=== PATIENT | male | born 1965 | race Caucasian/White ===

== ENCOUNTER 2024-10-05 22:18 | Emergency (ER) | payer BC, SELFPAY ==
[2024-10-05 22:18] VITALS: BMI 26.4
[2024-10-05 22:26] VITALS: BP 130/89; PULSE 80; RESP 17; TEMP 36.9; O2SAT 97
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
[2024-10-05] MEDS: HYDROcodone/APAP 10/325 TAB PO (22:39)
[2024-10-05] MEDS: cephALEXin 250 MG CAPSULE 500 MG PO (22:39)
[2024-10-05] MEDS: DIPHTH,PERTUSS(ACELL),TET VAC 0.5 ML SYR IMi (22:41)
== END 2024-10-05 22:55 | disposition home or self-care (01) ==
LOC: SERX 22:51
PROVIDERS: Emergency Provider Emergency Medicine; PCP Family Medicine
DX: S81.811A Laceration without foreign body, right lower leg, initial encounter (principal); X58.XXXA Exposure to other specified factors, initial encounter; Z23 Encounter for immunization
CPT/HCPCS: 90471; 90715; 99283; A9270